=== PATIENT | male | born 1965 | race Caucasian/White ===

== ENCOUNTER 2022-06-07 20:35 | Emergency (ER) | payer BC ==
[~2022-06-07] VITALS: Ht 188 cm; Wt 138.4 kg
[2022-06-07 21:05] VITALS: BP 166/85
== END 2022-06-07 23:43 | disposition left against medical advice (07) ==
LOC: ER 20:35
DX: Z53.21 Procedure and treatment not carried out due to patient leaving prior to being seen by health care provider (principal)